=== PATIENT | male | born 1990 | race Two or more races ===

== ENCOUNTER 2025-08-23 22:32 | Emergency (ER) | payer OTHER ==
[~2025-08-23] VITALS: Ht 185.4 cm; Wt 100.0 kg
[2025-08-23 22:35] VITALS: TEMP 98.5
[2025-08-24] MEDS: FLUORESCEIN SOD OPTH TEST STRIP LEFTEYE ONE (01:23)
[2025-08-24] MEDS: TETRACAINE HCL 0.5% OPTH(EYE) SOLN 4ML LEFTEYE ONE (01:23)
[2025-08-24 01:26] VITALS: BP 142/99; PULSE 92; RESP 20; O2SAT 97
[2025-08-24] MEDS ORDERED: ERY05OO OP (01:30)
--- NOTE | 2025-08-24 01:30 | ED.PDOC ---
Eye-HPI HPI Comments 35-year-old male presents to ER with left eye complaint x2 days. Patient reports he has been experiencing redness, clear drainage, photosensitivity and 9/10 pain to left eye x2 days. Reports that his symptoms started one day after he was grinding metal. Denies use of medications for current symptoms and presents to ER ambulatory on arrival, with steady gait, in no distress. Denies vision changes, use of contacts/glasses, double vision or any further symptoms/complaints Chief Complaint: Eye Problem Time Seen by MD: 23:15 Primary Care Provider: UNKNOWN Reviewed Notes: Nurses Notes, Medications, Allergies Allergies: Coded Allergies: NO KNOWN ALLERGIES (Unverified , 08/23/25) Home Meds Active Scripts Erythromycin (Erythromycin) 5 Mg/Gm Oin, 1 MG OP 6XD for 7 Days, #1 OIN 0 Refills Prov:PEPE LEZAMA 08/24/25 Information Source: Patient Mode of Arrival: Ambulatory Past Medical History PAST MEDICAL HISTORY: Denies Surgical History: Denies all surgeries Family History Family History: Unknown Social History Smoker: Non-Smoker Alcohol: Denies ETOH Use Drugs: Denies Drug Use Lives In: Home Constitutional: denies: chills, diaphoresis, fatigue, fever, malaise, sweats, weakness, others EENTM: reports: others (As stated in HPI) Respiratory: denies: cough, hemoptysis, orthopnea, SOB at rest, shortness of breath, SOB with excertion, stridor, wheezing, others Cardiovascular: denies: chest pain, dizzy spells, diaphoresis, Dyspnea on exertion, edema, irregular heart beat, left arm pain, lightheadedness, palpitations, PND, syncope, others Gastrointestinal: denies: abdomen distended, abdominal pain, blood streaked bowels, constipated, diarrhea, dysphagia, difficulty swallowing, hematemesis, melena, nausea, poor appetite, poor fluid intake, rectal bleeding, rectal pain, vomiting, others Genitourinary: denies: burning, dysuria, flank pain, frequency, hematuria, incontinence, penile discharge, penile sore, pain, testicle pain, testicle swelling, urgency, others Neurological: denies: dizziness, fainting, headache, left sided numbness, left sided weakness, numbness, paresthesia, pre-existing deficit, right sided numbness, right sided weakness, seizure, speech problems, tingling, tremors, weakness, others Musculoskeletal: denies: back pain, gout, joint pain, joint swelling, muscle pain, muscle stiffness, neck pain, others Integumetry: denies: bruises, change in color, change in hair/nails, dryness, laceration, lesions, lumps, rash, wounds, others Allergic/Immunocompromised: denies: Difficulty Healing, Frequent Infections, Hives, Itching, others Hematologic/Lymphatic: denies: anemia, blood clots, easy bleeding, easy bruising, swollen glands, others Endocrine: denies: excessive hunger, excessive sweating, excessive thirst, excessive urination, flushing, intolerance to cold, intolerance to heat, unexplained weight gain, unexplained weight loss, others Psychiatric: denies: anxiety, bipolar disorder, depression, hopeless, panic disorder, schizophrenia, sleepless, suicidal, others Physical Exam General Appearance: No Apparent Distress HEENT: PERRL/EOMI, Pharynx Normal, TMs Normal, Other ([place] examination left eye - subconjunctival injection, small corneal abrasion and minimal clear drainage noted. No corneal ulceration or foreign body noted. Minimal swelling noted to left upper eyelid, no further skin changes noted) Neck: Full Range of Motion, Non-Tender, Normal Respiratory: Chest Non-Tender, Lungs Clear, No Accessory Muscle Use, No Respiratory Distress, Normal Breath Sounds Cardiovascular: No Murmur, No Gallop, Regular Rate/Rhythm Breast Exam: Deferred Gastrointestinal: NOT DONE Genitalia: Deferred Pelvic: Deferred Rectal: Deferred Extremities: Normal capillary refill, Normal range of motion Neurologic: Alert, health promotion officer II-XII nml as Tested, No Motor Deficits, Normal Affect, Normal Mood, No Sensory Deficits Cerebellar Function: Normal Reflexes: Normal Skin: Dry, Normal Color, Warm Lymphatic: No Adenopathy Was a procedure done? Was a procedure done?: No Sedation Sedation?: No EENT DIFF Eye: Foreign Body-Corneal, Iritis/Uveitis, Orbital Cellulits, Periorbital Cellulits X-Ray, Labs, Meds, VS Vital Signs Date Time Temp Pulse Resp B/P (MAP) Pulse Ox O2 Delivery O2 Flow Rate FiO2 08/24/25 01:26 97 Room Air* 0 21 08/24/25 01:26 92 20 142/99 (113) 97 08/23/25 22:35 98.5 86 20 149/102 98 98.5 Current Medications Medications (Trade) Dose Ordered Sig/Catrina Route Start Time Stop Time Status Last Admin Tetracaine HCl (Tetracaine 0.5% Opth Soln) 1 drop ONCE ONCE LEFTEYE 08/24/25 01:15 08/24/25 01:16 DC 08/24/25 01:23 Fluorescein Sodium (Ful-Fabiola) 1 mg ONCE ONCE LEFTEYE 08/24/25 01:15 08/24/25 01:16 DC 08/24/25 01:23 Fluorescein ophthalmic ordered Tetracaine ophthalmic ordered Advised to follow up with PCP and Ophthalmology in 1-2 days Patient verbalized understanding and agreeable with current plan of care Advised to return to ER immediately if symptoms worsen Time of 1ST Reevaluation: 01:04 Reevaluation 1ST: N/A Patient Education/Counseling: Diagnosis, Treatment, Prognosis, Need For Follow Up Family Education/Counseling: No Family Present SEPSIS Sepsis Screen Date sepsis recognized/suspect: Aug 23, 2025 Time Sepsis recognized/suspect: 2235 Recent Procedure: No On Antibiotic Therapy: No Respiratory Rate >20: No Heart Rate >90: Yes Temp<36 C (96.8 F) or >38.3 C: No SBP <90 or MAP <65 mmHG: No New Acute Mental Status Change: No Is the patient on CPAP, BIPAP,: No Vital Signs Date Time Temp Pulse Resp B/P (MAP) Pulse Ox O2 Delivery O2 Flow Rate FiO2 08/24/25 01:26 97 Room Air* 0 21 08/24/25 01:26 92 20 142/99 (113) 97 08/23/25 22:35 98.5 86 20 149/102 98 98.5 Medications Medications Dose Ordered Sig/Catrina Route Start Time Stop Time Status Last Admin Dose Admin Fluorescein Sodium 1 mg ONCE ONCE LEFTEYE 08/24/25 01:15 08/24/25 01:16 DC 08/24/25 01:23 Tetracaine HCl 1 drop ONCE ONCE LEFTEYE 08/24/25 01:15 08/24/25 01:16 DC 08/24/25 01:23 Departure 1 Departure Time of Disposition: 01:28 Impression: Primary Impression: Corneal abrasion, left Qualified Codes: S05.02XA - Injury of conjunctiva and corneal abrasion without foreign body, left eye, initial encounter Disposition: HOME / SELF CARE / HOMELESS Condition: Stable e-Prescriptions Erythromycin (Erythromycin) 5 Mg/Gm Oin 1 MG OP 6XD for 7 Days, #1 OIN 0 Refills Prov: PEPE LEZAMA 08/24/25 Discharged With: Friend Critical Care Note Critical Care Time?: No Stability Stability form required: No Heart Score Heart Score: Heart Score Response (Comments) Value History N/A 0 EKG N/A 0 Age N/A 0 Risk Factors N/A 0 Troponin N/A 0 Total 0 PEPE LEZAMA Aug 24, 2025 01:30
[2025-08-24] MEDS: ERYTHROMY OPTH OINT 5mg/gm 1gm or 3.5gm tube OP ONE (01:34)
== END 2025-08-24 01:42 | disposition home or self-care (01) ==
LOC: ER 22:32
DX: S05.02XA Injury of conjunctiva and corneal abrasion without foreign body, left eye, initial encounter (principal); Z79.899 Other long term (current) drug therapy; X58.XXXA Exposure to other specified factors, initial encounter; Y93.89 Activity, other specified; Y92.89 Other specified places as the place of occurrence of the external cause; Y99.8 Other external cause status